=== PATIENT | female | born 1935 | race African-American/Black ===

== ENCOUNTER 2017-06-05 09:12 | Emergency (ER) | payer MEDICARE, MEDICAID ==
[~2017-06-05] VITALS: Ht 154.9 cm; Wt 79.0 kg
[2017-06-05] MEDS ORDERED: KETOROLAC 60MG/2ML VIAL IM ONE (11:00)
[2017-06-05 12:30] VITALS: BP 156/65
== END 2017-06-05 14:07 | disposition home or self-care (01) ==
LOC: ER 09:42
DX: M70.62 Trochanteric bursitis, left hip (principal); I10 Essential (primary) hypertension; E11.9 Type 2 diabetes mellitus without complications; M19.90 Unspecified osteoarthritis, unspecified site; Z88.8 Allergy status to other drugs, medicaments and biological substances
CPT/HCPCS: 73502; 73560; 96372; 99284; J1885; 99283